=== PATIENT | female | born 1965 | race Caucasian/White ===

== ENCOUNTER 2017-09-26 10:40 | Emergency (ER) | payer BC ==
[2017-09-26 10:54] VITALS: BP 122/79
[2017-09-26] MEDS ORDERED: Tetan/Diph/Pertus SYR(Tdap)* 0.5 ML SYR(BOOSTRIX) use SYR IM ONE (11:09)
--- NOTE | 2017-09-26 11:09 | UC ---
Bite Injury/Animal HPI - HPI Summary HPI Summary: 52 y/o female presents to the urgent care c/o of a cat bite in her left hand s/ p examining a cat which is owned this morning about 2 hrs ago. Pt works in [employer]. Last tetanus vaccine was 7 years ago. Pt states cat didn't punctured her skin, it is a mild superficial bite. She thinks cat got scared. Pt irrigated well wound and denies any pain. Pt has FROM of left hand and fingers. Pt is PCN allergic w/ unknown reaction. Pt denies fever, swelling,numbness or tingling of eft hand, SOB, chest pain, abdominal pain, N/V/D. - History of Current Complaint Chief Complaint: UCSkin Stated Complaint: CAT BITE Time Seen by Provider: 09/26/17 11:01 Hx Obtained From: Patient Hx Last Menstrual Period: post menopause ?: No Severity Currently: Mild Severity Initially: Mild Pain Intensity: 0 Pain Scale Used: 0-10 Numeric Onset/Duration: Sudden Onset, Lasting Hours - 2hrs Type of Bite: Animal - cat Has Animal Been Immunized?: Yes Character: Abrasion/Laceration Alleviating Factor(s): Nothing - abrasion of left hand Associated Signs And Symptoms: Positive: Negative Hx of Bite: Unprovoked Animal Available for Observation: Yes Animal Control Notified: No - Risk Factors Infection/Sepsis Risk Factors: Negative - Allergies/Home Medications Allergies/Adverse Reactions: Allergies Allergy/AdvReac Type Severity Reaction Status Date / Time Penicillins Allergy Unknown Verified 09/26/17 10:54 Reaction Details PMH/Surg Hx/FS Hx/Imm Hx Previously Healthy: Yes Endocrine History: Dyslipidemia Respiratory History: Asthma - Surgical History Surgical History: None - Family History Known Family History: Positive: Cardiac Disease Family History: cancer - Social History Occupation: Employed Full-time Lives: With Family Alcohol Use: Weekly Substance Use Type: None Smoking Status (MU): Never Smoked Tobacco - Immunization History Most Recent Tetanus Shot: Pt [place] it was 7 years ago Review of Systems Constitutional: Negative Skin: Other - cat bite on left hand Eyes: Negative ENT: Negative Respiratory: Negative Cardiovascular: Negative Gastrointestinal: Negative Genitourinary: Negative Motor: Negative Neurovascular: Negative Musculoskeletal: Negative Neurological: Negative Psychological: Negative Is Patient Immunocompromised?: No All Other Systems Reviewed And Are Negative: Yes Physical Exam - Summary Physical Exam Summary: Vital Signs Reviewed: Yes General: well developed, well nourished female sitting in the examining table w/ o any apparent distress Eye Exam: Normal Eyes: Positive: Conjunctiva Clear - PERRLA, EOMI, fundi grossly normal ENT: Positive: Normal ENT inspection, Hearing grossly normal, Pharynx normal, TMs normal Neck: Positive: Supple, Nontender, No Lymphadenopathy Respiratory: Positive: Chest non-tender, Lungs clear, Normal breath sounds, No respiratory distress Cardiovascular: Positive: RRR, No Murmur, Pulses Normal, Brisk Capillary Refill Abdomen Description: Positive: Nontender, No Organomegaly, Soft. Negative: CVA Tenderness (R), CVA Tenderness (L) Bowel Sounds: Positive: Present Musculoskeletal: Positive: Strength Intact, ROM Intact, No Edema Neurological: Positive: Alert, Muscle Tone Normal Psychological Exam: Normal Skin: Positive:Dorsal side of left hand around base of left thumb and index w / 2 linear discrete superficial puncture wounds about 0.5cm in size, mild swelling, non tender to palpation, no bleeding no ecchymosis around hand. FROM of LF , thumb hand and arm, sensation intact, capillary refill brisk, and pulses WNL. Triage Information Reviewed: Yes Vital Signs: Initial Vital Signs Temp 98.7 F 09/26/17 10:47 Pulse 66 09/26/17 10:47 Resp 16 09/26/17 10:47 BP 122/79 09/26/17 10:47 Pulse Ox 99 09/26/17 10:47 Bite Injury Course/Dx - Course Course Of Treatment: 52 y/o female presents to the urgent care c/o of a cat bite in her left hand s/p examining a cat which is owned this morning about 2 hrs ago. Pt works in [employer]. Last tetanus vaccine was 7 years ago. Pt states cat didn't punctured her skin, it is a mild superficial bite. She thinks cat got scared. Pt irrigated well wound and denies any pain. Pt has FROM of left hand and fingers. Pt is PCN allergic w/ unknown reaction. Pt denies fever, swelling, numbness or tingling of eft hand, SOB, chest pain, abdominal pain, N/V/D. Hx obtained.Positive:Dorsal side of left hand around base of left thumb and index w/ 2 linear discrete superficial puncture wounds about 0.5cm in size, mild swelling, non tender to palpation on examination. wound irrigation ordered and performed by nurse. wound cleaned well and bacitracin oint applied over and sterile gauze applied. PT given Tdap booster by nurse.Pt tolerated well IM vaccine. Pt PCN allergic. Pt Rx Doxycycline PO and Metronidazole PO. Pt hesitant to take all ABx, However strongly advised to take medications for prevention. D/C instrcutions explained. Pt understood and agreed w/ plan of care. - Differential Dx/Diagnosis Differential Diagnosis/HQI/PQRI: Cellulitis, Laceration, Puncture, Rabies Exposure, Superficial Infection Provider Diagnoses: 1- left hand cat bite at work Discharge - Sign-Out/Discharge Documenting (check all that apply): Patient Departure - D/C home - Discharge Plan Condition: Stable Disposition: HOME Prescriptions: Bacitracin OINTMENT* 1 applic TOPICAL BID #1 tube DOXYcycline CAP(*) [DOXYcycline 100MG CAP(*)] 100 mg PO BID #14 cap metroNIDAZOLE * 500 mg PO Q8H #21 tablet Patient Education Materials: Animal Bite (ED) Referrals: Lacy Mccall MD [Primary Care Provider] - 3 Days Additional Instructions: 1-Please take full course of antibiotic to prevent infection. Take Probiotics Culturelle OTC to protect your digestive system 2- Apply Bacitracin oint over the wound. Keep wound clean and dry 3-Take Ibuprofen or Tylenol PO q6-8hrs prn for pain or swelling. 4- If you develop fever or redness around your hand despite the antibiotic please go to the ER immediately or return to the Urgent care. - Billing Disposition and Condition Condition: STABLE Disposition: Home
== END 2017-09-26 11:30 | disposition home or self-care (01) ==
LOC: UCEAST 10:40
DX: S61.452A Open bite of left hand, initial encounter (principal); Z88.0 Allergy status to penicillin; W55.01XA Bitten by cat, initial encounter; Y92.89 Other specified places as the place of occurrence of the external cause; Y99.0 Civilian activity done for income or pay
CPT/HCPCS: 90471; 90715; 99212; G0463

== ENCOUNTER 2021-10-29 08:30 | Inpatient (IN) ==
[~2021-10-29 08:30] MED LIST: Buffered Lidocaine 1% SYRIN 1 ml INTRADERM ONE; Famotidine IV 10 MG/ML 2 ml VIAL (20 mg) IV ONE; Lactated Ringers 1000 ml BAG 1,000 ML IV SCH
[2021-10-29] MEDS ORDERED: Lidocaine 2% PF 5 ML VIAL ONE (09:28)
[2021-10-29] MEDS ORDERED: Propofol 10 MG/ML 20 ML BTL ONE ×2 (09:28→13:26)
[2021-10-29] MEDS ORDERED: Clindamycin 900 MG/D5W BAG 900 MG/50 ML BAG IVPB ONE (09:58)
[2021-10-29] MEDS ORDERED: Famotidine IV 10 MG/ML 2 ml VIAL (20 mg) ONE (10:33)
[2021-10-29] MEDS ORDERED: Ketamine HCL 50 mg/ml 10 ml VIAL (500 MG) ONE (10:41)
[2021-10-29] MEDS ORDERED: Midazolam 2 mg/2 ml VIAL 1 mg/ml 2 ml VIAL (2 mg) ONE ×2 (10:42→11:54)
[2021-10-29] MEDS ORDERED: ROPIVACAINE 5 MG/ML 30 ML BTL (0.5%) ONE (11:36)
[2021-10-29] MEDS ORDERED: Ondansetron 4 mg VIAL 2 MG/ML 2 ml VIAL ONE (12:27)
[2021-10-29] MEDS ORDERED: Acetaminophen IV 1 GM/100ML 1,000 MG/100 ML BAG IV ONE (12:27)
[2021-10-29] MEDS ORDERED: Ondansetron 4 mg VIAL 2 MG/ML 2 ml VIAL IV PRN ×2 (13:08→13:40)
[2021-10-29] MEDS ORDERED: Lactulose 30 ml UDC PO PRN (13:08)
[2021-10-29] MEDS ORDERED: Morphine 2 MG/ML SYRINGE IV PRN (13:08)
[2021-10-29] MEDS ORDERED: Ondansetron ODT 4 mg TAB 4 MG TAB PO PRN (13:08)
[2021-10-29] MEDS ORDERED: Magnesium Hydroxide LIQ 30 ML UDC PO PRN (13:08)
[2021-10-29] MEDS ORDERED: fentaNYL 100 mcg/2 ml 50 MCG/ML VIAL IV PRN (13:40)
[2021-10-29] MEDS ORDERED: Naloxone 0.4 mg VIAL 0.4 mg/ml 1 ml VIAL IV PRN (13:40)
[2021-10-29] MEDS ORDERED: HYDROmorphone 1 MG/1 ML SYRINGE IV PRN (13:40)
[2021-10-29] MEDS ORDERED: Clindamycin 600 MG/D5W BAG 600 MG/50 ML BAG IV SCH (14:00)
[2021-10-29] MEDS ORDERED: Lactated Ringers 1000 ml BAG 1,000 ML IV SCH (14:00)
[2021-10-29] MEDS: Clindamycin 600 MG/D5W BAG 600 MG/50 ML BAG IV SCH (21:02)
[2021-10-29] MEDS: Magnesium Hydroxide LIQ 30 ML UDC PO SCH (23:24)
[2021-10-30] MEDS: Clindamycin 600 MG/D5W BAG 600 MG/50 ML BAG IV SCH ×2 (03:48→11:38)
[2021-10-30 05:44] LABS: Hematocrit 32 % (35-47); Hemoglobin 10.8 g/dL (12.0-16.0); Mean Platelet Volume 7.8 fL (7.4-10.4); Platelet Count 226 10^3/uL (150-450)
[2021-10-30 06:30] LABS: Blood Urea Nitrogen 14 mg/dL (6-24); CO2 Carbon Dioxide 26 mmol/L (22-32); Calcium 8.2 mg/dL (8.6-10.3); Chloride 105 mmol/L (101-111); Glucose 141 mg/dL (70-100); Potassium 4.5 mmol/L (3.5-5.0); Sodium 131 mmol/L (135-145); eGFR CKD-EPI 102.1 (>60)
[2021-10-30] MEDS ORDERED: Vitamin THERAPEUTIC TAB PO SCH (09:00)
[2021-10-30] MEDS: Magnesium Hydroxide LIQ 30 ML UDC PO SCH (09:25)
[2021-10-30 09:42] VITALS: BP 99/62
== END 2021-10-30 13:30 | disposition home or self-care (01) | DRG 301 ==
LOC: AA 09:36 → INTOOBSV 09:36 → SSU 17:31
PROVIDERS: ADMIT Orthopaedic Surgery Adult Reconstructive Orthopaedic Surgery; ATTEND Orthopaedic Surgery Adult Reconstructive Orthopaedic Surgery